=== PATIENT | male | born 1970 | race Caucasian/White ===

== ENCOUNTER 2022-06-25 13:43 | Emergency (ER) | payer OTHER ==
[~2022-06-25] VITALS: Ht 172.7 cm; Wt 105.7 kg
[~2022-06-25 13:43] MED LIST: DIOVAN160 M1 PO; PLAVIX75 MG PO
[2022-06-25] MEDS ORDERED: TENORMIN100 M1 PO (14:43)
[2022-06-25] MEDS ORDERED: GLUCOTROL XL5 MG PO (14:43)
[2022-06-25] MEDS ORDERED: HYDROCHLOROTHIA25 MG PO (14:44)
== END 2022-06-25 17:46 | disposition home or self-care (01) ==
LOC: ER 13:43
DX: S00.03XA Contusion of scalp, initial encounter (principal); I10 Essential (primary) hypertension; E11.9 Type 2 diabetes mellitus without complications; Z88.6 Allergy status to analgesic agent; W18.30XA Fall on same level, unspecified, initial encounter; Y93.9 Activity, unspecified; Y92.9 Unspecified place or not applicable; Y99.9 Unspecified external cause status

== ENCOUNTER 2022-08-12 11:34 | Outpatient (CLI) | payer OTHER ==
[~2022-08-12 11:34] MED LIST changes: +GLUCOTROL XL5 MG PO; +HYDROCHLOROTHIA25 MG PO; +TENORMIN100 M1 PO
== END 2022-08-12 11:39 | disposition home or self-care (01) ==
LOC: RAD 11:34
PROVIDERS: ATTEND Internal Medicine
DX: R52 Pain, unspecified (principal)